=== PATIENT | female | born 1955 | race African-American/Black ===

== ENCOUNTER → 2021-02-20 08:11 | Outpatient (CLI) | payer BC ==
[2020-10-08 14:11] VITALS: BMI 46.7
[~2021-02-20 08:11] MED LIST: LEVAQUIN750 MG PO
== END | disposition home or self-care (01) ==
LOC: D.MRI 08:00
PROVIDERS: ATTEND Orthopaedic Surgery
DX: M75.121 Complete rotator cuff tear or rupture of right shoulder, not specified as traumatic (principal)